=== PATIENT | female | born 1970 | race Caucasian/White ===

== ENCOUNTER 2016-07-13 18:33 | Emergency (ER) | payer BC, OTHER ==
[~2016-07-13] VITALS: Ht 162.6 cm; Wt 98.0 kg
--- NOTE | 2016-07-13 19:08 | PD ---
HPI Chief Complaint: seizure Time Seen by Provider: 19:04 Travel History International Travel<30 days: No Contact w/Intl Traveler<30days: No Traveled to known affect area: No History of Present Illness HPI 45-year-old female was brought in by EMS after a seizure episode. Patient's family reported seizure lasted about 30 minutes this afternoon. Patient has history of seizure on the Lamictal and Fycompa. Patient states that she usually has breakthrough seizures about 2 times a month. Patient was at home when the seizure episode happened this afternoon. Patient denies any injury during the seizure. Patient complains of headache. Patient denies any visual change. Patient denies any neck pain. Patient denies any chest pain or shortness of breath. Patient denies abdominal pain. Patient denies any focal weakness or numbness of extremity. Patient denies any alcohol or drug abuse. Patient states that she has been taking the medications as directed. Patient states that she has history of seizure with the past 10 years. Patient states that she recently moved to [facility] and does not have a local physician or neurologist locally. PFSH Social History Tobacco Use: No Allergies-Medications (Allergen,Severity, Reaction): Coded Allergies: No Known Allergies (Unverified , 07/13/16) Reported Meds & Prescriptions Reported Meds & Active Scripts Active Zofran Odt (Ondansetron Odt) 4 Mg Tab 4 Mg SL Q6HR PRN Fioricet (Gpwqdxkygn-Kavtxhfmvimdc-Cnzryaxu) 50-300-40 Mg Cap 1-2 Cap PO Q6H PRN Reported Fycompa (Perampanel) 8 Mg Tab 8 Mg PO HS Celexa (Citalopram Hydrobromide) 40 Mg Tab 40 Mg PO DAILY Levothyroxine (Levothyroxine Sodium) 175 Mcg Tab 175 Mcg PO DAILY Lamictal (Lamotrigine) 25 Mg Tab 250 Mg PO BID Review of Systems General / Constitutional: No: Fever Eyes: No: Visual changes HENT: Positive: Headaches Cardiovascular: No: Chest Pain or Discomfort Respiratory: No: Shortness of Breath Gastrointestinal: No: Abdominal Pain Genitourinary: No: Dysuria Musculoskeletal: No: Pain Skin: No Rash Neurologic: Positive: Seizures, No: Weakness Psychiatric: No: Depression Endocrine: No: Polydipsia Hematologic/Lymphatic: No: Easy Bruising Physical Exam Narrative GENERAL: Well-nourished, well-developed patient. SKIN: Warm and dry. HEAD: Normocephalic. EYES: No scleral icterus. No injection or drainage. NECK: Supple, trachea midline. No JVD or lymphadenopathy. CARDIOVASCULAR: Regular rate and rhythm without murmurs, gallops, or rubs. RESPIRATORY: Breath sounds equal bilaterally. No accessory muscle use. GASTROINTESTINAL: Abdomen soft, non-tender, nondistended. MUSCULOSKELETAL: No cyanosis, or edema. BACK: Nontender without obvious deformity. No CVA tenderness. Neurologic exam: Patient is lethargic however answer questions appropriately. Patient moves all extremity well. No obvious focal neurological deficit. Data Data Last Documented VS Vital Signs Date Time Temp Pulse Resp B/P Pulse Ox O2 Delivery O2 Flow Rate FiO2 07/13/16 21:00 75 16 142/77 100 Nasal Cannula 2 07/13/16 19:12 97.6 Orders Complete Blood Count With Diff (07/13/16 19:04) Comprehensive Metabolic Panel (07/13/16 19:04) Prothrombin Time / Inr (Pt) (07/13/16 19:04) Act Partial Throm Time (Ptt) (07/13/16 19:04) Urinalysis - C+S If Indicated (07/13/16 19:04) Chest, Single Ap (07/13/16 19:04) Ct Brain W/O Iv Contrast(Rout) (07/13/16 19:04) Iv Access Insert/Monitor (07/13/16 19:04) Ecg Monitoring (07/13/16 19:04) Oximetry (07/13/16 19:04) Ed Urine Pregnancytest Poc (07/13/16 19:04) Ondansetron Inj (Zofran Inj) (07/13/16 19:13) Ondansetron Inj (Zofran Inj) (07/13/16 19:30) Acetaminophen (Tylenol) (07/13/16 19:45) Ketorolac Inj (Toradol Inj) (07/13/16 22:00) Labs Laboratory Tests Test 07/13/16 07/13/16 19:35 22:10 White Blood Count 12.2 TH/MM3 Red Blood Count 4.82 MIL/MM3 Hemoglobin 14.3 GM/DL Hematocrit 41.7 % Mean Corpuscular Volume 86.7 FL Mean Corpuscular Hemoglobin 29.7 PG Mean Corpuscular Hemoglobin 34.2 % Concent Red Cell Distribution Width 14.7 % Platelet Count 227 TH/MM3 Mean Platelet Volume 8.6 FL Neutrophils (%) (Auto) 85.8 % Lymphocytes (%) (Auto) 9.1 % Monocytes (%) (Auto) 3.7 % Eosinophils (%) (Auto) 1.1 % Basophils (%) (Auto) 0.3 % Neutrophils # (Auto) 10.5 TH/MM3 Lymphocytes # (Auto) 1.1 TH/MM3 Monocytes # (Auto) 0.5 TH/MM3 Eosinophils # (Auto) 0.1 TH/MM3 Basophils # (Auto) 0.0 TH/MM3 CBC Comment DIFF FINAL Differential Comment Prothrombin Time 10.3 SEC Prothromb Time International 0.9 RATIO Ratio Activated Partial 26.1 SEC Thromboplast Time Sodium Level 140 MEQ/L Potassium Level 3.9 MEQ/L Chloride Level 105 MEQ/L Carbon Dioxide Level 32.3 MEQ/L Anion Gap 3 MEQ/L Blood Urea Nitrogen 4 MG/DL Creatinine 0.75 MG/DL Estimat Glomerular Filtration 84 ML/MIN Rate Random Glucose 101 MG/DL Calcium Level 8.0 MG/DL Total Bilirubin 0.6 MG/DL Aspartate Amino Transf 19 U/L (AST/SGOT) Alanine Aminotransferase 17 U/L (ALT/SGPT) Alkaline Phosphatase 81 U/L Total Protein 6.5 GM/DL Albumin 3.1 GM/DL Urine Color YELLOW Urine Turbidity HAZY Urine pH 5.5 Urine Specific [place] 1.023 Urine Protein 30 mg/dL Urine Glucose (UA) NEG mg/dL Urine Ketones 10 mg/dL Urine Occult Blood NEG Urine Nitrite NEG Urine Bilirubin NEG Urine Urobilinogen LESS THAN 2.0 MG/DL Urine Leukocyte Esterase NEG Urine RBC 7 /hpf Urine WBC 2 /hpf Urine Squamous Epithelial 9 /hpf Cells Urine Bacteria RARE /hpf Urine Hyaline Casts 3 /lpf Urine Mucus MOD /lpf Microscopic Urinalysis Comment CULT NOT INDICATED MDM Medical Decision Making Medical Screen Exam Complete: Yes Emergency Medical Condition: Yes Interpretation(s) Last Impressions Head CT 07/13/161903 Signed Impressions: Service Date/Time: Wednesday, July 13, 2016 20:42 - CONCLUSION: No acute disease. Drew Mello MD Chest X-Ray 07/13/161903 Signed Impressions: Service Date/Time: Wednesday, July 13, 2016 20:01 - CONCLUSION: No acute disease. Drew Mello MD 22:01 PM. CBC with WBC 12.2. 85 neutrophil. Bicarbonate 32.3. Differential Diagnosis Differential diagnosis including breakthrough seizures, head injury, electrolyte abnormality. Narrative Course 45-year-old female with seizure. History of seizure. Patient is on Lamictal and Fycompa. Patient has frequent breakthrough seizures episode. I spoke with neurologist florist supplies salesperson Dr. Camacho. Advised to increase Fycompa to 12 mg per day. Toradol 30 mg IV. Tylenol 650 mg by mouth. Zofran 4 mg IV. Diagnosis Primary Impression: Breakthrough seizure Additional Impression: Cephalgia Qualified Code: R51 - Acute nonintractable headache, unspecified headache type Patient Instructions: General Instructions Additional Instructions: Increase Fycompa To 12 mg daily. Follow with local neurologist. Med/Other Pt SpecificInfo: Existing Med Changed Scripts Ondansetron Odt (Zofran Odt)4 Mg Tab4 Mg SL Q6HR PRN (Nausea/Vomiting) #10 TAB Prov:Derek Bonilla MD 07/13/16 Ksszzrkcli-Kxjsanjvhlkur-Lvaknedw (Fioricet)50-300-40 Mg Cap1-2 Cap PO Q6H PRN ( HEADACHE) #20 CAP Ref 0 Prov:Derek Bonilla MD 07/13/16 Disposition: 01 DISCHARGE HOME Condition: Stable Derek Bonilla MD Jul 13, 2016 19:08
[2016-07-13 19:12] VITALS: BP 169/87; PULSE 83; RESP 16; TEMP 97.6; O2SAT 99
[2016-07-13] MEDS ORDERED: ONDANSETRON HCL 4 MG/2 ML VIAL ONE (19:13)
[2016-07-13] MEDS ORDERED: ONDANSETRON HCL 4 MG/2 ML VIAL IV PUSH ONE (19:30)
[2016-07-13] MEDS ORDERED: ACETAMINOPHEN 325 MG TAB PO ONE (19:45)
[2016-07-13 19:58] LABS: AUTOMATED NEUTROPHIL # 10.5 TH/MM3 (1.8-7.7); BASOPHIL % 0.3 % (0.0-2.0); EOSINOPHIL # 0.1 TH/MM3 (0-0.4); EOSINOPHIL % 1.1 % (0.0-4.0); HEMATOCRIT 41.7 % (35.0-46.0); HEMO FLAGS DIFF FINAL; LYMPH % 9.1 % (9.0-44.0); LYMPHOCYTE # 1.1 TH/MM3 (1.0-4.8); MEAN CELL VOLUME 86.7 FL (80.0-100.0); MEAN CORPUSCULAR HEMOGLOBIN 29.7 PG (27.0-34.0); MEAN CORPUSCULAR HGB CONC 34.2 % (32.0-36.0); MONO % 3.7 % (0.0-8.0); NEUT % 85.8 % (16.0-70.0); PLATELET COUNT 227 TH/MM3 (150-450); RED BLOOD COUNT 4.82 MIL/MM3 (4.00-5.30); RED CELL DISTRIBUTION WIDTH 14.7 % (11.6-17.2); WHITE BLOOD COUNT 12.2 TH/MM3 (4.0-11.0)
[2016-07-13 20:07] LABS: APTT (PATIENT) 26.1 SEC (24.3-30.1); INTERNATIONAL NORMALIZED RATIO 0.9 RATIO; PROTHROMBIN TIME - PATIENT 10.3 SEC (9.8-11.6)
[2016-07-13 20:13] LABS: ANION GAP 3 MEQ/L (5-15); AST (GOT) 19 U/L (15-37); BICARBONATE 32.3 MEQ/L (21.0-32.0); BLOOD UREA NITROGEN 4 MG/DL (7-18); CHLORIDE 105 MEQ/L (98-107); GLOMERULAR FILTRATION RATE 84 ML/MIN (>89); POTASSIUM 3.9 MEQ/L (3.5-5.1); SODIUM (NA) 140 MEQ/L (136-145)
[2016-07-13] MEDS ORDERED: LAMO25 PO (20:13)
[2016-07-13] MEDS ORDERED: LEVO175T2 PO (20:15)
[2016-07-13] MEDS ORDERED: PERA1TAB PO (20:15)
[2016-07-13] MEDS ORDERED: CELE40TA PO (20:15)
[2016-07-13 20:18] LABS: ALKALINE PHOSPHATASE 81 U/L (45-117); ALT (GPT) 17 U/L (10-53); TOTAL BILIRUBIN ADULT 0.6 MG/DL (0.2-1.0)
--- NOTE | 2016-07-13 20:30 | RADRPT ---
EXAM DATE/TIME: 07/13/2016 20:01 [facility] COMPARISON: No previous studies available for comparison. INDICATIONS : Shortness of breath and cough. MEDICAL HISTORY : Chronic obstructive pulmonary disease. Epilepsy. SURGICAL HISTORY : None. ENCOUNTER: Initial ACUITY: 1 day PAIN SCORE: 0/10 LOCATION: Bilateral chest FINDINGS: A single view of the chest demonstrates the lungs to be symmetrically aerated without evidence of mas s, infiltrate or effusion. The cardiomediastinal contours are unremarkable. Osseous structures are intact. CONCLUSION: No acute disease. Drew Mello MD on July 13, 2016 at 20:28 Board Certified Radiologist. This report was verified electronically.
[2016-07-13 21:00] VITALS: BP 142/77; PULSE 75; RESP 16; O2SAT 100
--- NOTE | 2016-07-13 21:04 | RADRPT ---
EXAM DATE/TIME: 07/13/2016 20:42 [facility] COMPARISON: No previous studies available for comparison. INDICATIONS : Syncope and seizure. RADIATION DOSE: 56.35 CTDIvol (mGy) MEDICAL HISTORY : Seizures. SURGICAL HISTORY : None. ENCOUNTER: Initial ACUITY: 1 day PAIN SCALE: 3/10 LOCATION: cranial TECHNIQUE: Multiple contiguous axial images were obtained of the head. Using automated exposure control and adj ustment of the mA and/or kV according to patient size, radiation dose was kept as low as reasonably a chievable to obtain optimal diagnostic quality images. FINDINGS: CEREBRUM: The ventricles are normal for age. No evidence of midline shift, mass lesion, hemorrhage or acute in farction. No extra-axial fluid collections are seen. POSTERIOR FOSSA: The cerebellum and brainstem are intact. The 4th ventricle is midline. The cerebellopontine angle i s unremarkable. EXTRACRANIAL: The visualized portion of the orbits is intact. SKULL: The calvaria is intact. No evidence of skull fracture. CONCLUSION: No acute disease. Drew Mello MD on July 13, 2016 at 21:01 Board Certified Radiologist. This report was verified electronically.
[2016-07-13] MEDS ORDERED: KETOROLAC TROMETHAMINE 30 MG/ML (IVP) VIAL IV PUSH ONE (22:00)
[2016-07-13] MEDS ORDERED: ZOFR4TAB3 SL (22:05)
[2016-07-13] MEDS ORDERED: BUTA1CAP PO (22:05)
[2016-07-13 22:27] LABS: BACTERIA, URINE RARE /hpf; BLOOD, URINE NEG (NEG); COMMENT (UR) CULT NOT INDICATED; CULTURE IF INDICATED CULT NOT INDICATED; GLUCOSE,URINE NEG (NEG); HYALINE CAST, URINE 3 /lpf (RARE); KETONE, URINE 10 mg/dL (NEG); MUCUS URINE MOD /lpf (OCC); NITRITE,URINE NEG (NEG); PH, URINE 5.5 (5.0-8.5); SQUAMOUS EPITHELIAL CELL URINE 9 /hpf (0-5); URINE COLOR YELLOW (YELLW/STRAW)
== END 2016-07-13 23:49 | disposition home or self-care (01) ==
LOC: NEPA 18:33
DX: G40.89 Other seizures (principal); R51 Headache; Z79.899 Other long term (current) drug therapy
CPT/HCPCS: 70450; 71010; 80053; 81001; 84703; 85025; 85610; 85730; 96374; 96375; 99284; J1885; J2405